=== PATIENT | male | born 1995 | race Caucasian/White ===

== ENCOUNTER 2023-04-05 07:30 | Outpatient (CLI) | payer BC, SELFPAY | END 2023-04-05 07:31 | disposition home or self-care (01) | LOC: NFLDREF 04-11 12:31 | PROVIDERS: Visit Provider Physician Assistant | DX: Z31.69 Encounter for other general counseling and advice on procreation (principal) | CPT/HCPCS: 89322 ==

== ENCOUNTER 2023-05-19 07:10 | Outpatient (CLI) | payer BC, SELFPAY | END 2023-05-19 07:11 | disposition home or self-care (01) | LOC: NFLDREF 05-20 14:27 | PROVIDERS: Visit Provider Physician Assistant | DX: Z31.9 Encounter for procreative management, unspecified (principal) | CPT/HCPCS: 89322 ==

== ENCOUNTER 2024-05-24 14:21 | Outpatient (CLI) | payer BC, SELFPAY ==
--- NOTE | 2024-05-24 14:30 | CRLHL7_ITS ---
For Patients: As a result of the Century Cures Act, medical imaging exams and procedure reports are released immediately into your electronic medical record. You may view this report before your referring provider. If you have questions, please contact your health care provider. Indication: L1 compression deformity Technique: Multiplanar, multisequence, MRI of the lumbar spine, obtained without contrast. Comparison: Lumbar spine x-ray 05/19/2024 Findings: Mild anterior wedge compression fracture of T12 with diffuse bony edema. Mild anterior wedge compression deformity of L1, with fatty marrow signal change. Scattered degenerative Schmorl`s nodes. No suspicious bone marrow lesion. Conus medullaris terminates at L1-L2. No concerning findings in the paraspinal soft tissues. Degenerative changes at the included SI joints. T11-T12: Minimal posterior bulging annulus, facet arthropathy. No right, mild left neural foraminal narrowing. Ventral thecal sac effacement without significant spinal canal stenosis. T12-L1: Mild facet arthropathy. No neural foraminal stenosis. Ventral thecal sac effacement without spinal canal stenosis. L1-L2: Disc degeneration. No neural foraminal or spinal canal stenosis. L2-L3: No neural foraminal or spinal canal stenosis. L3-L4: No neural foraminal or spinal canal stenosis. L4-L5: Mild diffuse disc bulge. Mild bilateral neural foraminal narrowing. No spinal canal stenosis. L5-S1: Shallow central protrusion. No right, mild left neural foraminal narrowing. No spinal canal stenosis. Impression: 1. Acute/subacute mild T12 anterior wedge compression fracture. 2. Chronic-appearing mild L1 anterior wedge compression deformity. 3. Mild spondylosis with mild neural foraminal narrowing. No spinal canal stenosis. Dictated by Mable Doyle MD @ 05/24/2024 4:48:41 PM (Electronically Signed)
== END 2024-05-24 14:22 | disposition home or self-care (01) ==
LOC: MRI 14:22
PROVIDERS: Visit Provider Physician Assistant
DX: S32.010A Wedge compression fracture of first lumbar vertebra, initial encounter for closed fracture (principal); S22.080D Wedge compression fracture of T11-T12 vertebra, subsequent encounter for fracture with routine healing; M47.896 Other spondylosis, lumbar region
CPT/HCPCS: 72148

== ENCOUNTER 2025-03-07 09:43 | Outpatient (CLI) | payer BC, SELFPAY | END 2025-03-07 09:44 | disposition home or self-care (01) | LOC: NFLDREF 03-14 02:24 | PROVIDERS: PCP Family Medicine; Visit Provider Family Medicine | DX: Z00.00 Encounter for general adult medical examination without abnormal findings (principal); Z13.6 Encounter for screening for cardiovascular disorders | CPT/HCPCS: 80053; 80061 ==